=== PATIENT | female | born 1980 | race Caucasian/White ===

== ENCOUNTER → 2016-08-19 | Outpatient (CLI) | payer OTHER ==
--- NOTE | 2016-08-19 09:45 | US ---
Complete Pelvic Sonography (Transabdominal and Endovaginal) Clinical History: 36-year-old female who had an IUD inserted 6 weeks ago and the patient's physician indicates the strings are not where they should be. The patient's LMP was August 06, 2016, and she is G2, P0. ICD-10 Diagnostic Code: Z30.431. Technique: A curvilinear 5 MHz transducer was initially used to sonographically evaluate the pelvis, although the urinary bladder was only partially distended. To better assess the uterine architecture and the adnexal structures, endovaginal pelvic sonography was also performed. Color Doppler and spect ral Doppler are used. Coronal reconstructed images through the endometrium are also provided. Comparison Study: None available. Findings: Transabdominal Pelvic Sonography: The uterus is anteverted and the echogenic intrauterine device appe ars to terminate at the fundal portion of the endometrium. The uterus measures 7.7 x 4.0 x 3.2 cm. Th ere are follicles associated with each ovary. There is no free fluid. Endovaginal Pelvic Sonography: The endometrial stripe measurement is 5.4 mm. The echogenic intrauteri ne device is appropriately positioned, and the sidearms are appropriately deployed at the fundal endo metrium, best appreciated on the coronal reconstructed images. The right ovary measures 2.9 x 2.0 x 3 .2 cm, and the left ovary measures 3.0 x 1.6 x 2.9 cm. There are bilateral ovarian follicles, with th e largest noted on the right measuring 1.4 x 1.6 x 1.5 cm. Intraovarian vascular flow is documented, with the right ovarian resistive index measuring 0.57 and the left ovarian resistive index measuring 0.54. There is no solid adnexal mass, nor is there any free fluid. Impression: 1. Appropriately positioned intrauterine device. 2. Bilateral multifollicular ovaries, with no torsion or free fluid.
== END ==
LOC: CIMAGING 08:02
PROVIDERS: ATTEND Family Medicine
DX: Z30.431 Encounter for routine checking of intrauterine contraceptive device (principal); N83.01 Follicular cyst of right ovary; N83.02 Follicular cyst of left ovary; Z97.5 Presence of (intrauterine) contraceptive device
CPT/HCPCS: 76856-PO

== ENCOUNTER 2018-11-30 06:38 | Day surgery (SDC) | payer OTHER ==
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
[~2018-11-30 06:38] MED LIST: DOXYCYCLINE INJ 100 MG in NS 250 ML IV ONE
[2018-11-30] MEDS ORDERED: LR 1,000 ML IV ONE (06:48)
[2018-11-30] MEDS ORDERED: POTASSIUM IODIDE/IODINE (LUGOL'S SOLN) 500 ML TP ONE (07:15)
[2018-11-30] MEDS ORDERED: MONSELS-FERRIC SUBSULFATE 8 GM SDV TP ONE (07:58)
[2018-11-30] MEDS ORDERED: VASOPRESSIN 20 UNIT/ML VIAL ONE (07:58)
[2018-11-30] MEDS ORDERED: SILVER NITRATE APPLICATOR 1 APPL TP ONE (07:58)
[2018-11-30] MEDS ORDERED: LIDOCAINE 1% 300 MG/30 ML SDV ONE (07:58)
[2018-11-30] MEDS ORDERED: MIDAZOLAM 2 MG/2 ML VIAL IVP ONE (08:03)
--- NOTE | 2018-11-30 08:03 | PDANEPAE ---
ANE History of Present Illness here for Cervical conization and biopsy ANE Past Medical History - Cardiovascular History Hx Hypertension: No Hx Arrhythmias: No Hx Chest Pain: No Hx Coronary Artery / Peripheral Vascular Disease: No Hx CHF / Valvular Disease: No Hx Palpitations: No - Pulmonary History Hx COPD: No Hx Asthma/Reactive Airway Disease: No Hx Recent Upper Respiratory Infection: No Hx Oxygen in Use at Home: No Hx Sleep Apnea: No Sleep Apnea Screening Result - Last Documented: Negative - Neurologic History Hx Cerebrovascular Accident: No Hx Seizures: No Hx Dementia: No - Endocrine History Hx Diabetes: No - Renal History Hx Renal Disorders: No - Liver History Hx Hepatic Disorders: No - Neurological & Psychiatric Hx Hx Neurological and Psychiatric Disorders: No - Cancer History Hx Cancer: No - Congenital Disorder History Hx Congenital Disorders: No - GI History Hx Gastrointestinal Disorders: No - Other Health History Other Health History: none - Chronic Pain History Chronic Pain: Yes (labral tear to left hip) - Surgical History Prior Surgeries: lasik eye surgery 2018. PRP to bilateral hips this past year ANE Review of Systems Review of systems is: negative Review of Systems: - Exercise capacity Exercise capacity: >=4 METS METS (RN): 4 METS ANE Patient History - Allergies Allergies/Adverse Reactions: No Known Allergies Allergy (Verified 11/23/18 11:13) - Home Medications Home medications: home medication list seen and reviewed Home Medications: Herbals/Supplements -Info Only 11/23/18 [Last Taken 1 Week Ago ~11/23/18] - NPO status NPO Status: no food or drink >8 hours NPO Since - Liquids (Date): 11/30/18 NPO Since - Liquids (Time): 05:08 NPO Since - Solids (Date): 11/29/18 NPO Since - Solids (Time): 19:00 - Anes Hx Anes Hx: no prior problems - Smoking Hx Smoking Status: Never smoked - Family Anes Hx Family Hx Anesthesia Complications: none ANE Labs/Vital Signs - Vital Signs Vital Signs: reviewed preoperatively; see RN documention for details Blood Pressure: 107/59 Heart Rate: 50 Respiratory Rate: 14 O2 Sat (%): 97 Height: 154.94 cm Weight: 61.235 kg ANE Physical Exam - Airway Neck exam: FROM Mallampati Score: Class 1 Mouth exam: normal dental/mouth exam - Pulmonary Pulmonary: no respiratory distress - Cardiovascular Cardiovascular: regular rate and rhythym - ASA Status ASA Status: II ANE Anesthesia Plan Anesthesia Plan: GA w LMA
--- NOTE | 2018-11-30 08:07 | PDHPUP ---
History & Physical Update H&P update statement: This history and physical update is based on an assessment of the patient which was completed after admission or registration (within 24 hours), but prior to the surgery/procedure. H&P update: H&P reviewed & patient examined, no change in patient's condition since H&P completed
[2018-11-30] MEDS ORDERED: ACETIC ACID IRR SOLN 0.25% 1,000 ML BTL ONE (08:08)
[2018-11-30] MEDS ORDERED: fentaNYL 100 MCG/2 ML INJ ONE ×2 (08:14→09:34)
[2018-11-30] MEDS ORDERED: PROPOFOL/EMULSION 500 MG/50 ML BOTTLE IV ONE (08:24)
[2018-11-30] MEDS ORDERED: ALBUTEROL 3 ML DEYVIAL IH PRN (08:57)
[2018-11-30] MEDS ORDERED: fentaNYL 100 MCG/2 ML INJ IVP PRN (08:57)
[2018-11-30] MEDS ORDERED: NS 500 ML IV PRN (08:57)
[2018-11-30] MEDS ORDERED: NALOXONE HCL 0.4 MG/ML INJ IVP PRN (08:57)
[2018-11-30] MEDS ORDERED: HYDROCODONE/APAP 5/325 TAB PO PRN (08:57)
[2018-11-30] MEDS ORDERED: oxyCODONE IR 5 MG TAB PO PRN (08:57)
[2018-11-30] MEDS ORDERED: HYDROmorphONE/DILAUDID 1 MG/ML INJ IVP PRN (08:57)
[2018-11-30] MEDS ORDERED: LR 500 ML IV PRN (08:57)
[2018-11-30] MEDS ORDERED: DEXAMETHASONE 4 MG/ML VIAL IVP PRN (08:57)
[2018-11-30] MEDS ORDERED: ACETAMINOPHEN 500 MG TAB PO PRN (08:57)
[2018-11-30] MEDS ORDERED: ONDANSETRON 4 MG/2 ML VIAL IVP PRN (08:57)
--- NOTE | 2018-11-30 09:28 | POSTOPPROG ---
Post Op Note Date of Operation: 11/30/18 Surgeon: Roberta Lainez Work Checker: Radha PHELAN Anesthesiologist: Dr Zac Guerrero Anesthesia: GET(General Endotracheal) (with LMA) Pre-op Diagnosis: severe cervical dysplasia, incomplete with retained POC Post-op Diagnosis: same Procedure: Cold Knife conization of cervix, suction D and C with U/s guidance Findings: retained POC Inf/Abcess present in the surg proc area at time of surgery?: No Depth: Organ Space EBL: Minimal Total fluids administered: 800 Complications: none Bowel Protocol: No Clean Closure Performed: N/A Specimen(s): cervical cone, products of conception
[2018-11-30] MEDS ORDERED: IBUPROFEN 600 MG TAB PO PRN (09:30)
[2018-11-30] MEDS ORDERED: KETOROLAC 30 MG/1 ML SDV IVP PRN (09:41)
[2018-11-30] MEDS ORDERED: KETOROLAC 30 MG/1 ML SDV ONE (09:45)
--- NOTE | 2018-11-30 10:23 | GOP ---
[f rep st] OPERATIVE REPORT DATE OF OPERATION: 11/30/2018 SURGEON: Roberta Lainez MD BUDGET DIRECTOR: Radha Cuello, certified nurse marketing operations assistant. ANESTHESIA: General anesthesia with an LMA. ANESTHESIOLOGIST: Zac Guerrero MD. PREOPERATIVE DIAGNOSIS: 1. Severe cervical dysplasia involving the endocervix. 2. Incomplete with retained products of conception. POSTOPERATIVE DIAGNOSIS: 1. Severe cervical dysplasia involving the endocervix. 2. Incomplete with retained products of conception. PROCEDURE PERFORMED: Cold knife conization of the cervix and suction dilation and curettage with ult rasound guidance. FINDINGS: SPECIMENS: Pathologic specimens will be cold knife conization of the cervix and products of concepti on. ESTIMATED BLOOD LOSS: Less than 20 mL. INDICATIONS: The patient is a 38-year-old, 3, para 0-0-3-0, who had a last menstrual period of July 25, 2018. She was being followed at [facility] for her care and she h ad an abnormal Pap, significant for HGSIL, probable glandular involvement, positive for HPV type 16. During her colposcopy in , she was diagnosed with a missed . There was no he art tones audible and ultrasound revealed a missed , 8 weeks by size with no heart tone s. We proceeded with a colposcopy, which indeed, this diagnosed her with severe dysplasia involving the endocervix and multiple biopsy sites on her cervix, and patient was given treatment options for h er missed . She initially had expectant management and had passage of gestational sac and ti ssue and felt that she had a spontaneous . An ultrasound to confirm this revealed a thickene d endometrium and retained products. The patient was given medical management, and before she took h er pills, she had another passes of tissue and clots and felt that she completed her miscarriage. Co nfirmatory ultrasound again revealed heterogeneous mass in her endometrium 3.2 x 1.9 x 2.5 cm, comple x with a large feeder vessel, likely retained products of conception. At this time, we discussed man agement options and patient wished to have surgical management in conjunction with her conization of the cervix. The patient was consented for both procedures. She understood the risks and benefits; t he risks including bleeding, infection, damage to the uterus including possible risk of perforation, damage to other organs if perforation were to occur, need for additional procedures, or spontaneous e xpulsion of tissue at a later time and compromise of future fertility. With a conization of the cerv ix, she understands that she could have cervical compromise and issues with labor in her futu re pregnancies, or need for additional procedures for her cervical dysplasia. She understood these r isks and benefits and agreed to proceed. DESCRIPTION OF PROCEDURE: The patient was taken to the operating room where she was placed under gen eral anesthesia without difficulty. She was prepped and draped in the dorsal lithotomy position and she had previously just drained her bladder. A weighted speculum was placed in the vagina and Pagan r etractor was used to visualize the cervix. The cervix was grasped with long Allis at the 3 o'clock a nd 9 o'clock position and stay sutures were performed with 0 Vicryl [id number] and tied tight a long both the 3 o'clock and 9 o'clock position. The Allis was removed. Vasopressin was injected cir cumferentially throughout the entire cervical stroma, a concentration of 20 in 100 mL and a total of 20 mL of that concentration was injected. The patient tolerated this well and hemostasis was assured . A circumferential cut was then made with the 11 blade in a cone pattern and the dissection was the n carried down with Bloom scissors and the cone specimen was removed without difficulty. The patient had good hemostasis. We removed the cone and then proceeded with a dilatation and curettage. The ut erus sounded to 7 cm. The cervix was then progressively dilated with Moralez dilators to a #7. A #7 c urved suction curette was gently advanced from the cervix to the fundus, suction was applied and tiss ue was obtained with several passages of the suction device, and there was a good amount of tissue se en. A sharp curettage was then performed in a clockwise fashion until a gritty texture was palpated throughout the entire endometrium. Final passage of the suction revealed no further tissue, minimal bleeding. The speculum and retractor were removed and a transvaginal ultrasound was performed. The uterus was seen and it had a clean, thin endometrial stripe from cervix to fundus. There was no furt her tissue visualized. Vaginal probe was removed. Open-sided speculum and a Pagan were replaced and the base of the cervix was then aggressively cauterized with ball cautery and Nora's was placed in the bed of the cervix and the stay sutures were tied together for hemostasis. There was good hemosta sis at the end of the case. The patient tolerated the procedure well. Sponge, lap, needle and instr ument counts were correct x2. Patient went to the recovery room in good condition. FLUID REPLACEMENT: 800 mL of saline. URINE OUTPUT: Not measured /[id number]/MODL
[2018-11-30] MEDS ORDERED: oxyCODONE IR 5 MG TAB ONE (10:55)
[2018-11-30 11:02] VITALS: BP 103/80
--- NOTE | 2018-11-30 14:53 | POSTANESTH ---
Post Anesthetic Evaluation Cardiovascular Status: Normal, Stable Respiratory Status: Normal, Stable Level of Consciousness/Mental Status: Can Participate in Eval Pain Control: Adequate, Prn Tx Ordered Nausea/Vomiting Control: Adequate, Prn Tx Ordered Complications Possibly Related to Anesthesia: None Noted
== END 2018-11-30 11:05 | disposition home or self-care (01) ==
LOC: FSGY 06:38
PROVIDERS: ATTEND Obstetrics & Gynecology
PROC: 10D17ZZ Extraction of Products of Conception, Retained, Via Natural or Artificial Opening (ICD-10-PCS; principal; 2018-11-30 08:15)
PROC: 0UBC7ZZ Excision of Cervix, Via Natural or Artificial Opening (ICD-10-PCS; principal; 2018-11-30 08:15)
DX: O03.9 Complete or unspecified spontaneous abortion without complication (principal); D06.9 Carcinoma in situ of cervix, unspecified
CPT/HCPCS: J1885; J2250; J2704; J3010